=== PATIENT | female | born 1950 | race Caucasian/White ===

== ENCOUNTER → 2020-04-03 | Outpatient (CLI) | payer MEDICARE, OTHER ==
[~2020-04-03] MED LIST: ASPI-266 PO; DICL75TA2 PO; ENAL1TAB PO; METF-380 PO; MISO200T4 PO
--- NOTE | 2020-04-03 08:25 | Diagnostic Imaging Report ---
INDICATION: Right hip pain. AP and oblique views of the right hip are obtained. No acute fracture or acute bone abnormality is seen. There is advanced degenerative change of the right hip joint with severe joint space narrowing and subchondral sclerosis with subchondral geode formation on both sides of the joint space. IMPRESSION: Advanced osteoarthritic changes of the right hip with no acute abnormality. Dictated by: Dictated on workstation # [id number]
--- NOTE | 2020-04-03 08:31 | Diagnostic Imaging Report ---
Indication: Back pain. AP and lateral views of the lumbar spine are obtained. The lumbar vertebrae are normal in height. There is no compression deformity. There is diffuse degenerative changes osteophyte formation throughout the lumbar region. There is disc space narrowing most prominent at L4-L5 with degenerative endplate changes. There are diffuse facet degenerative changes from L3 through S1. Aortic calcifications are noted. There is calcification of the left upper quadrant which is unchanged compared to the prior study. Impression: Degenerative findings throughout the lumbar spine, most prominent at L4-L5. The disc space narrowing is progressed compared to 05/10/2016 at L4-L5. There is no acute appearing abnormality. Dictated by: Dictated on workstation # [id number]
== END ==
LOC: RAD 07:37
PROVIDERS: ATTEND Family Medicine
DX: M16.11 Unilateral primary osteoarthritis, right hip (principal); M47.816 Spondylosis without myelopathy or radiculopathy, lumbar region; M51.36 Other intervertebral disc degeneration, lumbar region; M48.061 Spinal stenosis, lumbar region without neurogenic claudication
CPT/HCPCS: 72100; 73502

== ENCOUNTER → 2020-09-23 | Outpatient (CLI) | payer MEDICARE, OTHER ==
[~2020-09-23] VITALS: Ht 167 cm; Wt 112.0 kg
[~2020-09-23] MED LIST changes: +CATHETER FLUSH 10 ML SYR IV PRN; +REGADENOSON 0.4 MG/5 ML SYR (LEXISCAN) IV ONE
[2020-09-23 09:07] VITALS: BP 183/97
--- NOTE | 2020-09-23 15:56 | Cardiology Stress Test Report ---
Stress Test Report Date of Procedure/Referring: Date of Procedure: Sep 23, 2020 PCP Demetrio Mckeon MD Admitting Physician Anayeli Alanis MD Indications: Hypertension Baseline Heart Rate: 90 Baseline Blood Pressure: Blood Pressure Systolic: 183 Blood Pressure Diastolic: 97 Baseline Vitals Vital Signs Date Time Temp Pulse Resp B/P (MAP) Pulse Ox O2 Delivery O2 Flow Rate FiO2 09/23/20 09:07 89 18 183/97 (125) 98 Room Air Baseline EKG: Baseline EKG: normal sinus rhythm Summary After explaining the procedure to the patient, she signed a consent and then brought to the stress nuclear laboratory. Patient received 0.4 mg Lexiscan for stress test, ECG, heart rate and blood pressure were monitored continuously. Resting and stress dose of radio tracer were injected, imaging was acquired and reviewed in short axis, horizontal long axis and vertical long axis views. TID: 1.08 SSS: 5 SDS: 3 EF: 54 1. Patient tolerated Lexiscan well 2. Decreased uptake involving the inferior wall and inferoapex, extracardiac attenuation affecting the quality of the images with mild reversibility involving the mid to apical inferior wall neck sign 3. Normal left ventricular size, EF 54 percent DEMETRIO MCKEON MD Sep 23, 2020 15:56
== END ==
LOC: CARD 07:45
PROVIDERS: ATTEND Internal Medicine Cardiovascular Disease
DX: I13.10 Hypertensive heart and chronic kidney disease without heart failure, with stage 1 through stage 4 chronic kidney disease, or unspecified chronic kidney disease (principal); N18.30 Chronic kidney disease, stage 3 unspecified; E11.22 Type 2 diabetes mellitus with diabetic chronic kidney disease; E78.2 Mixed hyperlipidemia
CPT/HCPCS: 78452; 93017; 93306; A9502

== ENCOUNTER 2020-10-07 08:00 | Day surgery (SDC) | payer MEDICARE, OTHER ==
[~2020-10-07] VITALS: Ht 168 cm; Wt 112.5 kg
[2020-10-07] VITALS (22 sets, daily range): BP systolic 149–214; BP diastolic 72–120
[2020-10-07 07:42] LABS: HEMOGLOBIN 14.6 g/dL (11.5-16.0); MEAN PLATELET VOLUME 10.8 fL (9.0-12.2)
[2020-10-07 07:54] LABS: INR 0.9 (0.8-1.4); PROTHROMBIN TIME PATIENT 12.8 SEC (12.2-14.7)
[~2020-10-07 08:00] MED LIST changes: -CATHETER FLUSH 10 ML SYR IV PRN; +HEParin (CATH LAB) 2,000 ML IV ONE; +HEParin 1000 UNIT/ML (10ML VIAL) FOR BOLUS ONE; +LIDOCAINE 1% INJ 20 ML 20 ML VIAL ONE; +MIDAZOLAM 5 MG/5 ML (VERSED) VIAL ONE; +NITRO DRIP 25000 MCG/D5W 250 ML IV ONE; +NS IV 1000 ML 1,000 ML IV SCH; +NS IV 1000 ML 1,000 ML ONE; -REGADENOSON 0.4 MG/5 ML SYR (LEXISCAN) IV ONE; +VERAPAMIL 5 MG/2 ML (CALAN) VIAL IV ONE; +fentaNYL INJECTION 100 MCG/2 ML AMP ONE
[2020-10-07 08:03] LABS: ALBUMIN 4.1 GM/DL (3.2-4.5); BILIRUBIN,TOTAL 0.4 MG/DL (0.1-1.0); CALCIUM 9.4 MG/DL (8.5-10.1); CREATININE SERUM 1.17 MG/DL (0.60-1.30); POTASSIUM 4.1 MMOL/L (3.6-5.0); TOTAL PROTEIN 7.3 GM/DL (6.4-8.2)
[2020-10-07] MEDS ORDERED: ASPI-1238 PO (08:06)
[2020-10-07] MEDS ORDERED: AMLO2.5T4 PO (08:06)
[2020-10-07] MEDS ORDERED: MTP25TSR PO (08:06)
[2020-10-07] MEDS ORDERED: DOCU100T7 PO (08:06)
[2020-10-07] MEDS ORDERED: DICL75TA2 PO (08:06)
[2020-10-07] MEDS ORDERED: INSU100I29 SQ (08:06)
[2020-10-07] MEDS ORDERED: ENAL10TA16 PO (08:06)
[2020-10-07] MEDS ORDERED: MISO200T62 PO (08:06)
[2020-10-07] MEDS ORDERED: LIRA0.6P3 SQ (08:06)
--- NOTE | 2020-10-07 08:06 | Diagnostic Imaging Report ---
Indication: Abnormal stress test. Dyspnea. Hypertension Upright chest shows normal heart size and vascularity. The lungs are clear. There is no effusion or pneumothorax. There is no bony abnormality. IMPRESSION: Normal chest. Dictated by: Dictated on workstation # [id number]
--- NOTE | 2020-10-07 08:41 | Cardiac Procedure Note-CS/ASA ---
Pre-Procedure Note Pre-Op Procedure Note H&P Reviewed The H&P was reviewed, patient examined and no changes noted. Date H&P Reviewed: Oct 07, 2020 Time H&P Reviewed: 08:40 Conscious Sedation Pre-Proced Time 08:40 ASA Score 3 For ASA 3 and 4: Consider anesthesia and medical clearance. Also, for patients with a history of failed moderate sedation consider anesthesia. Airway Lungs Heart ASA score ASA 1: a normal healthy patient ASA 2: a patient with a mild systemic disease (mid diabetes, controlled hypertension, obesity x ASA 3: a patient with a severe systemic disease that limits activity (angina, COPD, prior Myocardial infarction) ASA 4: a patient with an incapacitating disease that is a constant threat to life (CHF, renal failure) ASA 5: a moribund patient not expected to survive 24 hrs. (ruptured aneurysm) ASA 6: a declared brain- patient whose organs are being harvested. For emergent operations, add the letter E after the classification Mallampati Classification Grade 3 Sedation Plan Analgesia, Amnesia, Plan communicated to team members, Discussed options with patient/fam, Discussed risks with patient/fam The patient is an appropriate candidate to undergo the planned procedure, sedation, and anesthesia. The patient immediately re-assessed prior to indication. DEMETRIO MENDEZ MD Oct 07, 2020 08:41
--- NOTE | 2020-10-07 09:04 | NUR ---
SPOKE WITH THE PT AND CALLED [facility] TO COMPLETE THE MED REC THE FOLLOWING ARE FILL DATES FROM [facility]: 07-11-2020 VICTOZA #3 PENS/30DS- THE PAST DUE FILL IS DOCUMENTED ON THE MED REC 07-27-2020 METOPROLOL SUCC 25MG #90/90DS 07-27-2020 DICLOFENAC 75MG #90/90DS 08-05-2020 AMLODIPINE 2.5MG #90/90DS 08-05-2020 LEVEMIR FLEXPEN #5PENS/42DS 09-14-2020 MISOPROSTOL 200MG #99 OTC MEDS: ASPIRIN 81 STOOL SOFTENER
[2020-10-07] MEDS ORDERED: TICAGRELOR 90 MG TABLET (BRILINTA) PO ONE (09:56)
[2020-10-07] MEDS ORDERED: ASPIRIN 325 MG (5 GR) TABLET ONE (09:56)
[2020-10-07] MEDS ORDERED: NON-FORMULARY MEDICATION 1 EA EA (Docusate Sodium (Stool Softener) 100 MG) PO PRN (10:15)
[2020-10-07] MEDS ORDERED: PATIENT MAY USE OWN MEDS, ALL PO SCH (10:15)
--- NOTE | 2020-10-07 10:20 | Cardiac Cath Report ---
Cardiac Cath Report Physician (s)/Director Of Personnel (s) Physician DEMETRIO MENDEZ MD Pre-Procedure Diagnosis Pre-Procedure Diagnosis: coronary artery disease Post-Procedure Note Procedure Start Date: Oct 07, 2020 Name of Procedure: Left heart catheterization Stent to the LAD Findings/Procedure Note PROCEDURE NOTE: 69-year-old lady with history of hypertension, hyperlipidemia, had abnormal stress test, scheduled for angiogram possible angioplasty. After explaining the procedure to the patient, all pros and cons were explained, all questions were answered. The patient signed the consent and then she was placed on the cardiac catheterization laboratory. Groin was prepped SL fashion local anesthesia was used. Sheath placed in the right radial artery, [place] catheter advanced to the left ventricular cavity, pressure was measured for back LV to aorta was done then intubated the left coronary system with difficulties. Angiogram was done, I could not reach the right coronary artery. The sheath was removed and vascular band was used and I placed 6 [place] sheath in the right femoral artery. Sis right catheter advanced to the right coronary system then patient was noted to have severe stenosis at multiple segments in the LAD with slow flow. Total of 7000 units of heparin were given, EBU guide was advanced then I was unable to advance the BMW wire through the LAD due to tortuosity and heavy stenosis and severe stenosis, I placed it in the diagonal artery and advanced whisper extra support wire and placed it distally predilated the area with 2.5 x 20 mm balloon then I placed 3 overlapping stent using Sariah stent distally 2.5 x 23 and expanded to 2.7 mm overlapping with mid stent 3.0 x 23 mm expanded to 3.25 and in the proximal LAD there is a 3.5 x 18 stent deployed overlapping with the mid stent expanded to 3.65 mm with excellent results At the end of the procedure the sheath was removed. Closure device was deployed FINDINGS: Hemodynamics LV 137/14, end-diastolic pressure 14 Aorta 131/73 mean of 72 ANATOMY: Left Main is bifurcating into LAD and circumflex artery with no obstructive disease Left Anterior Descending is heavily calcified artery with multiple segment of severe stenosis, complex intervention with deployment of 3 overlapping stent using Sariah stent starting distally with 2.5 x 23 expanded to 2.7 mm, mid 3.0 x 23 expanded to 3.25 and proximally 3.5 x 18 expanded to 3.65 with excellent results Left Circumflex is large dominant artery with mild disease nonobstructive disease Right Coronory Artery is small nondominant artery with no obstructive disease LV Gram was not done, pressure was measured CONCLUSION: 1. Severe long segment stenosis in the LAD with heavy calcification, complex intervention with deployment of 3 overlapping drug-eluting stents using Sariah starting distally with 2.523 mm expanded to 2.7 mm, mid 3.0 x 23 mm expanded to 3.25 mm and proximally 3.5 x 18 mm expanded to 3.65 mm with excellent results and excellent blood flow postintervention 2. Large dominant circumflex artery with mild disease at the distal portion nonobstructive disease 3. Small nondominant right coronary artery 4. Normal left ventricular end-diastolic pressure DISCUSSION AND RECOMMENDATION: Patient had poor flow in the LAD prior to the intervention, heavily calcified LAD requiring 3 overlapping stent she will be treated with aspirin and Brilinta and will require dual antiplatelet therapy for one year, I recommend postponing her hip surgery for one year, continue to maximize medical therapy at [facility] to her medication Anesthesia Type: Conscious Sedation Estimated blood loss (mL): 50 ml Contrast Amount: 180 ml Total Radiation Dose: 2408 mGy Post-Procedure Diagnosis Post-operative diagnosis: Chest pain Coronary artery disease Hypertension Hyperlipidemia DEMETRIO MENDEZ MD Oct 07, 2020 10:20
[2020-10-07] MEDS: NS IV 1000 ML 1,000 ML IV SCH (11:09)
--- NOTE | 2020-10-07 12:30 | NUR ---
RIGHT WRIST PRESSURE DEVICE REMOVED AND STERILE DRESSING APPLIED. NO BLEEDING NOTED. GROIN DRESSING REMAINS UNCHANGED WITH SCANT BLOOD NOTED ON THE LOWER ASPECT OF THE DRESSING. HOB ELEVATED 30 DEGREES AND A SANDWICH WAS GIVEN TO THE PATIENT.
--- NOTE | 2020-10-07 12:45 | NUR ---
PATIENT VOIDED PER BEDPAN WITHOUT INCIDENT.
--- NOTE | 2020-10-07 12:50 | NUR ---
REPORT TO Jamia CARBAJAL RN. PATIENT TO ICU PER BED WITH MONITOR.
[2020-10-07] MEDS ORDERED: DOCUSATE SODIUM 100 MG (COLACE) CAP PO PRN (15:15)
[2020-10-07] MEDS ORDERED: amLODIPine 2.5MG (NORVASC) TAB PO SCH (21:00)
[2020-10-07] MEDS ORDERED: INSULIN DETEMIR 35 UNIT SQ SCH (21:00)
[2020-10-07] MEDS: TICAGRELOR 90 MG TABLET (BRILINTA) PO SCH (21:13)
[2020-10-08] VITALS: BP 121/97
[2020-10-08 03:32] LABS: HEMOGLOBIN 13.8 g/dL (11.5-16.0); MEAN PLATELET VOLUME 11.1 fL (9.0-12.2); WHITE BLOOD COUNT 9.9 10^3/uL (4.3-11.0)
[2020-10-08 03:45] LABS: ALBUMIN 3.8 GM/DL (3.2-4.5); POTASSIUM 3.9 MMOL/L (3.6-5.0)
[2020-10-08 03:47] LABS: CALCIUM 9.3 MG/DL (8.5-10.1)
[2020-10-08 03:48] LABS: TOTAL PROTEIN 6.8 GM/DL (6.4-8.2)
[2020-10-08 03:50] LABS: BILIRUBIN,TOTAL 0.4 MG/DL (0.1-1.0)
[2020-10-08 03:51] LABS: CREATININE SERUM 1.22 MG/DL (0.60-1.30)
[2020-10-08 04:00] VITALS: BP 129/80
[2020-10-08] MEDS: NS IV 1000 ML 1,000 ML IV SCH ×2 (04:13→06:24)
[2020-10-08 08:00] VITALS: BP 142/112
[2020-10-08] MEDS ORDERED: ENALAPRIL 10 MG (VASOTEC) TAB PO SCH (09:00)
[2020-10-08] MEDS ORDERED: MISOPROSTOL 200 MCG (CYTOTEC) TABLET PO SCH (09:00)
[2020-10-08] MEDS ORDERED: VICTOZA SQ SCH (09:00)
[2020-10-08] MEDS ORDERED: NON-FORMULARY MEDICATION 1 EA EA (Liraglutide (Victoza 3-Pak) 1.8 MG) SQ SCH (09:00)
[2020-10-08] MEDS ORDERED: ASPIRIN E.C. 81 MG (ECOTRIN) TAB PO SCH (09:00)
[2020-10-08] MEDS ORDERED: ATOR10TA66 PO (09:01)
[2020-10-08] MEDS ORDERED: TICA90TA PO (09:01)
--- NOTE | 2020-10-08 09:02 | Cardiology Progress Note ---
Subjective Date Seen by Provider: Oct 08, 2020 Time Seen by Provider: 09:39 Subjective/Events-last exam Coronary artery disease, status post cardiac catheterization with stenting, site is healing well. No new complaint, no chest pain Review of Systems General: No Chills, No Night Sweats, No Fatigue, No Malaise, No Appetite, No Other HEENT: No Head Aches, No Visual Changes, No Eye Pain, No Ear Pain, No Dysphasia, No Sinus Congestion, No Post Nasal Drip, No Sore Throat, No Other Pulmonary: No Dyspnea, No Cough, No Pleuritic Chest Pain, No Other Cardiovascular: No: Chest Pain, Palpitations, Orthopnea, Paroxysmal Noc. D yspnea, Edema, Lt Headedness, Other Objective-Cardiology Exam Last Set of Vital Signs Vital Signs 10/07/20 10/08/20 16:03 08:00 Temp 36.2 Pulse 82 Resp 22 B/P (MAP) 142/112 (122) Pulse Ox 94 O2 Delivery Room Air O2 Flow Rate 4.00 Capillary Refill : Less Than 3 Seconds I&O Intake and Output 10/08/20 00:00 Intake Total 300 ml Output Total 400 ml Balance -100 ml Intake Oral 300 ml Output Urine Total 400 ml Daily Weight Change No No General: Alert, Oriented X3, Cooperative HEENT: Atraumatic, PERRLA Neck: Supple, No JVD, No Thyromegaly Lungs: Clear to Auscultation, Normal Air Movement Heart: Regular Rate, Normal S1, Normal S2, No Murmurs Abdomen: Normal Bowel Sounds, Soft, No Tenderness, No Hepatosplenomegaly, No Masses Extremities: No Clubbing, No Cyanosis, No Edema, Normal Pulses, No Tenderness/Swelling Skin: No Rashes, No Breakdown, No Significant Lesion Neuro: Normal Gait, Normal Speech, Strength at 5/5 X4 Ext, Normal Tone, Sensation Intact Psych/Mental Status: Mental Status NL, Mood NL Results Lab Laboratory Tests 10/08/20 03:17 A/P-Cardiology Admission Diagnosis Coronary artery disease Hypertension Hyperlipidemia Diabetes mellitus Assessment/Plan Coronary artery disease, status post stenting, educated in length about compliance with the new medication with aspirin and Brilinta 1. Severe long segment stenosis in the LAD with heavy calcification, complex intervention with deployment of 3 overlapping drug-eluting stents using Sariah starting distally with 2.523 mm expanded to 2.7 mm, mid 3.0 x 23 mm expanded to 3.25 mm and proximally 3.5 x 18 mm expanded to 3.65 mm with excellent results and excellent blood flow postintervention 2. Large dominant circumflex artery with mild disease at the distal portion nonobstructive disease 3. Small nondominant right coronary artery 4. Normal left ventricular end-diastolic pressure Hypertension, monitor blood pressure next Hyperlipidemia, monitor lipids next Diabetes mellitus Clinical Quality Measures DVT/VTE Risk/Contraindication: Risk Factor Score Per Nursin RFS Level Per Nursing on Admit: 2=Moderate DEMETRIO MENDEZ MD Oct 08, 2020 9:02 am
--- NOTE | 2020-10-08 09:02 | Discharge Inst-Post CATH ---
Discharge Inst-CATH/EP Problems Reviewed?: Yes Post Cardiac Cath/EP D/C Inst Follow Up/Plan Appointment with Dr. MENDEZ's office in 2 weeks <b>CARDIAC CATH/EP PROCEDURE DISCHARGE INSTRUCTIONS</b> ACTIVITY * Go Home directly and rest. * Limit activity of the leg (or wrist if it was used) for 7 days including aerobics, swimming, jogging, bicycling, etc. * Restrict stair-climbing for 7 days if possible, if not, climb up with your non-cath leg, then bring together on the same step. * Avoid lifting, pushing, pulling or excessive movement of the affected extremity for 7 days. * Customary sexual activity may be resumed after 2 days-use caution not to use a position that strains or causes pain to the affected extremity. * No driving for 24 hours. * NO SMOKING. * Avoid straining for bowel movements for 7 days. * Gentle walking on level ground is allowed. * Returning to work will depend on the type of procedure and the results. Your doctor will discuss this with you. CALL YOUR DOCTOR FOR ANY OF THE FOLLOWING: *If bleeding from the puncture site occurs- Apply gentle pressure to site with clean cloth and call your doctor or EMS. * If a knot or lump forms under the skin, increases in size, or causes pain. * If bruising appears to be worsening or moving further down your leg instead of disappearing. * Temperature above 101 F. CARE OF YOUR GROIN INCISION; * Bruising or purple discoloration of the skin near the puncture site is common. * You may shower only, no bathtub bathing for 5 days. Be careful to avoid slipping as your leg may feel stiff. * If a closure device was used on your femoral artery, please see the attached guide regarding care of the device and your leg. * Leave dressing on FOR 24 hours. CARE OF YOUR WRIST INCISION; * Bruising or purple discoloration of the skin near the puncture site is common. * You may shower. * DO NOT submerge wrist. * Leave dressing on FOR 24 hours. DEMETRIO MENDEZ MD Oct 08, 2020 09:02
[2020-10-08] MEDS: TICAGRELOR 90 MG TABLET (BRILINTA) PO SCH (09:22)
== END 2020-10-08 11:21 | disposition home or self-care (01) ==
LOC: CATH 08:00 → SDC 10:28 → CSD 13:15 → CATH 10-08 11:21
PROVIDERS: ATTEND Internal Medicine Cardiovascular Disease
DX: I25.10 Atherosclerotic heart disease of native coronary artery without angina pectoris (principal); I10 Essential (primary) hypertension; E78.5 Hyperlipidemia, unspecified; G47.33 Obstructive sleep apnea (adult) (pediatric); E78.2 Mixed hyperlipidemia; R09.89 Other specified symptoms and signs involving the circulatory and respiratory systems; M16.10 Unilateral primary osteoarthritis, unspecified hip; R94.39 Abnormal result of other cardiovascular function study; Z79.899 Other long term (current) drug therapy; Z88.8 Allergy status to other drugs, medicaments and biological substances; Z83.3 Family history of diabetes mellitus
CPT/HCPCS: 71045; 80053 ×2; 80061; 82962; 85027 ×2; 85610; 85730; 87081; 93458; C1725; C1760; C1769 ×2; C1874 ×3; C1887; C1894 ×2; C9600; 36415

== ENCOUNTER → 2021-03-31 | Outpatient (CLI) | payer MEDICARE, OTHER ==
[~2021-03-31] MED LIST changes: +AMLO2.5T4 PO; +ASPI-1238 PO; +ATOR10TA66 PO; +DOCU100T7 PO; +ENAL10TA16 PO; -HEParin (CATH LAB) 2,000 ML IV ONE; -HEParin 1000 UNIT/ML (10ML VIAL) FOR BOLUS ONE; +INSU100I29 SQ; -LIDOCAINE 1% INJ 20 ML 20 ML VIAL ONE; +LIRA0.6P3 SQ; -MIDAZOLAM 5 MG/5 ML (VERSED) VIAL ONE; +MISO200T66 PO; +MTP25TSR PO; -NITRO DRIP 25000 MCG/D5W 250 ML IV ONE; -NS IV 1000 ML 1,000 ML IV SCH; -NS IV 1000 ML 1,000 ML ONE; +TICA90TA PO; -VERAPAMIL 5 MG/2 ML (CALAN) VIAL IV ONE; -fentaNYL INJECTION 100 MCG/2 ML AMP ONE
--- NOTE | 2021-03-31 10:20 | Diagnostic Imaging Report ---
INDICATION: Left flank pain KUB 9:44 AM Lung bases are clear. Bowel gas pattern is normal. There are no masses seen. There is a round calcification in the left midabdomen previously demonstrated to be calcified lymph node. There are degenerative disc changes lower lumbar spine and of the right hip. IMPRESSION: No acute abnormalities in the abdomen Dictated by: Dictated on workstation # [id number]
== END ==
LOC: RAD 09:14
PROVIDERS: ATTEND Nurse Practitioner Family
DX: R10.9 Unspecified abdominal pain (principal)
CPT/HCPCS: 74018

== ENCOUNTER → 2022-02-16 | Outpatient (CLI) | payer MEDICARE, OTHER ==
[~2022-02-16] VITALS: Ht 170 cm; Wt 120.0 kg
[~2022-02-16] MED LIST changes: +ASPIRIN E.C. 81 MG (ECOTRIN) TAB PO SCH; +CATHETER FLUSH 10 ML SYR IVP PRN; +CLOPIDOGREL 75 MG (PLAVIX) TABLET PO SCH; +NS IV 1000 ML 1,000 ML IV SCH; +REGADENOSON 0.4 MG/5 ML SYR (LEXISCAN) IV ONE
[2022-02-16 13:02] VITALS: BP 149/93
--- NOTE | 2022-02-16 15:23 | Cardiology Stress Test Report ---
Stress Test Report Date of Procedure/Referring: Date of Procedure: Feb 16, 2022 PCP Demetrio Mckeon MD Admitting Physician Anayeli Alanis MD Indications: HTN Baseline Heart Rate: 88 Baseline Blood Pressure: Blood Pressure Systolic: 149 Blood Pressure Diastolic: 93 Baseline Vitals Vital Signs Date Time Temp Pulse Resp B/P (MAP) Pulse Ox O2 Delivery O2 Flow Rate FiO2 02/16/22 13:02 88 149/93 (111) 98 Baseline EKG: Baseline EKG: NSR Summary After explaining the procedure to the patient, she signed a consent and then brought to the stress nuclear laboratory. Patient received 0.4 mg Lexiscan for stress test, ECG, heart rate and blood pressure were monitored continuously. Resting and stress dose of radio tracer were injected, imaging was acquired and reviewed in short axis, horizontal long axis and vertical long axis views. TID: 1.02 SSS: 15 SDS: 3 EF: 50 1. Patient tolerated Lexiscan well 2. Diaphragmatic attenuation with decreased uptake involving the whole inferior wall and inferior apical segment and true apex with mild reversibility at the inferior apex and true apex. 3. Normal left ventricular size, EF 50% DEMETRIO MCKEON MD Feb 16, 2022 15:23
== END ==
LOC: CARD 10:30
PROVIDERS: ATTEND Internal Medicine Cardiovascular Disease
DX: I10 Essential (primary) hypertension (principal); I25.10 Atherosclerotic heart disease of native coronary artery without angina pectoris
CPT/HCPCS: 78452; 93017; 93306; A9502

== ENCOUNTER 2022-03-02 09:00 | Day surgery (SDC) | payer MEDICARE, OTHER ==
[2022-03-02] VITALS (7 sets, daily range): BP systolic 114–152; BP diastolic 78–93
[~2022-03-02] VITALS: Ht 168.9 cm; Wt 121.8 kg
--- NOTE | 2022-03-02 08:06 | Diagnostic Imaging Report ---
INDICATION: Heart catheterization, coronary artery disease COMPARISON: 10/07/2020 TECHNIQUE: Single radiograph chest dated 03/02/2022. FINDINGS: The cardiac silhouette is within normal limits in size and stable. No significant pulmonary vascular congestion. The lungs are clear of focal pulmonary opacity. No pleural effusion. No pneumothorax. No acute osseous abnormality. IMPRESSION: Stable appearing examination without acute cardiopulmonary abnormality. Dictated by: Dictated on workstation # [id number]
[2022-03-02 08:07] LABS: HEMATOCRIT 42 % (35-52); HEMOGLOBIN 13.6 g/dL (11.5-16.0); MEAN CORPUSCULAR HEMOGLOBIN 29 pg (25-34); MEAN CORPUSCULAR HGB CONC 32 g/dL (32-36); MEAN CORPUSCULAR VOLUME 90 fL (80-99); MEAN PLATELET VOLUME 11.2 fL (9.0-12.2); PLATELET COUNT 225 10^3/uL (130-400); WHITE BLOOD COUNT 9.3 10^3/uL (4.3-11.0)
[2022-03-02 08:08] LABS: BILIRUBIN,URINE NEGATIVE (NEGATIVE); CLARITY,URINE CLEAR; COLOR,URINE YELLOW; GLUCOSE, URINE (UA) NEGATIVE (NEGATIVE); KETONES,URINE NEGATIVE (NEGATIVE); LEUKOCYTE ESTERASE ,URINE 2+ (NEGATIVE); NITRITE,URINE NEGATIVE (NEGATIVE); PH,URINE 6.5 (5-9); PROTEIN,URINE 2+ (NEGATIVE)
[2022-03-02 08:22] LABS: BILIRUBIN,TOTAL 0.3 MG/DL (0.1-1.0); CALCIUM 9.8 MG/DL (8.5-10.1); CREATININE SERUM 1.35 MG/DL (0.60-1.30); POTASSIUM 4.2 MMOL/L (3.6-5.0); TOTAL PROTEIN 7.2 GM/DL (6.4-8.2)
[2022-03-02 08:31] LABS: INR 0.9 (0.8-1.4); PROTHROMBIN TIME PATIENT 12.9 SEC (12.2-14.7)
[2022-03-02 08:38] LABS: BACTERIA,URINE FEW /HPF
[~2022-03-02 09:00] MED LIST changes: +AMLO-250 PO; -ASPIRIN E.C. 81 MG (ECOTRIN) TAB PO SCH; +CALC-250 PO; -CATHETER FLUSH 10 ML SYR IVP PRN; +CLOP75TA28 PO; -CLOPIDOGREL 75 MG (PLAVIX) TABLET PO SCH; +ERGO2000 PO; +HEParin (CATH LAB) 2,000 ML IV ONE; +LIDOCAINE 1% INJ 50 ML (XYLOCAINE) VIAL ONE; +METO75TA PO; +NS IV 1000 ML 1,000 ML ONE; -REGADENOSON 0.4 MG/5 ML SYR (LEXISCAN) IV ONE
--- NOTE | 2022-03-02 09:19 | Conscious Sedation/ASA ---
Conscious Sedation Pre-Proced Time 09:18 ASA Score 3 For ASA 3 and 4: Consider anesthesia and medical clearance. Also, for patients with a history of failed moderate sedation consider anesthesia. Airway Lungs Heart ASA score ASA 1: a normal healthy patient ASA 2: a patient with a mild systemic disease (mid diabetes, controlled hypertension, obesity x ASA 3: a patient with a severe systemic disease that limits activity (angina, COPD, prior Myocardial infarction) ASA 4: a patient with an incapacitating disease that is a constant threat to life (CHF, renal failure) ASA 5: a moribund patient not expected to survive 24 hrs. (ruptured aneurysm) ASA 6: a declared brain- patient whose organs are being harvested. For emergent operations, add the letter E after the classification Mallampati Classification Grade 3 Sedation Plan Analgesia, Amnesia, Plan communicated to team members, Discussed options with patient/fam, Discussed risks with patient/fam The patient is an appropriate candidate to undergo the planned procedure, sedation, and anesthesia. The patient immediately re-assessed prior to indication. DEMETRIO MENDEZ MD Mar 02, 2022 09:18
[2022-03-02] MEDS ORDERED: MIDAZOLAM 5 MG/5 ML (VERSED) VIAL ONE (09:24)
[2022-03-02] MEDS ORDERED: fentaNYL INJ 100 MCG/2 ML AMP ONE (09:24)
[2022-03-02] MEDS ORDERED: HEParin 1000 UNIT/ML (10ML VIAL) FOR BOLUS ONE (09:24)
[2022-03-02] MEDS ORDERED: VERAPAMIL 5 MG/2 ML (CALAN) VIAL IV ONE (09:24)
[2022-03-02] MEDS ORDERED: NITRO DRIP 25000 MCG/D5W 250 ML IV ONE (09:26)
--- NOTE | 2022-03-02 10:12 | Discharge Inst-Post CATH ---
Discharge Inst-CATH/EP Problems Reviewed?: Yes Post Cardiac Cath/EP D/C Inst Follow Up/Plan Appointment with Dr. Mckeon's office in 2 to 4 weeks <b>CARDIAC CATH/EP PROCEDURE DISCHARGE INSTRUCTIONS</b> ACTIVITY * Go Home directly and rest. * Limit activity of the leg (or wrist if it was used) for 7 days including aer obics, swimming, jogging, bicycling, etc. * Restrict stair-climbing for 7 days if possible, if not, climb up with your non-cath leg, then bring together on the same step. * Avoid lifting, pushing, pulling or excessive movement of the affected extremi ty for 7 days. * Customary sexual activity may be resumed after 2 days-use caution not to use a position that strains or causes pain to the affected extremity. * No driving for 24 hours. * NO SMOKING. * Avoid straining for bowel movements for 7 days. * Gentle walking on level ground is allowed. * Returning to work will depend on the type of procedure and the results. Your doctor will discuss this with you. CALL YOUR DOCTOR FOR ANY OF THE FOLLOWING: *If bleeding from the puncture site occurs- Apply gentle pressure to site with clean cloth and call your doctor or EMS. * If a knot or lump forms under the skin, increases in size, or causes pain. * If bruising appears to be worsening or moving further down your leg instead of disappearing. * Temperature above 101 F. CARE OF YOUR GROIN INCISION; * Bruising or purple discoloration of the skin near the puncture site is common. * You may shower only, no bathtub bathing for 5 days. Be careful to avoid slipping as your leg may feel stiff. * If a closure device was used on your femoral artery, please see the attached guide regarding care of the device and your leg. * Leave dressing on FOR 24 hours. CARE OF YOUR WRIST INCISION; * Bruising or purple discoloration of the skin near the puncture site is common. * You may shower. * DO NOT submerge wrist. * Leave dressing on FOR 24 hours. DEMETRIO MCKEON MD Mar 02, 2022 10:12
[2022-03-02] MEDS ORDERED: NS IV 1000 ML 1,000 ML IV SCH (10:15)
--- NOTE | 2022-03-02 10:15 | Cardiac Cath Report ---
Cardiac Cath Report Physician (s)/Scroll Saw Operator (s) Physician DEMETRIO MENDEZ MD Pre-Procedure Diagnosis Pre-Procedure Diagnosis: coronary artery disease Post-Procedure Note Procedure Start Date: Mar 02, 2022 Name of Procedure: Left heart catheterization Findings/Procedure Note PROCEDURE NOTE: 71-year-old lady with a history of coronary artery disease, hypertension hyperlipidemia, had an abnormal stress test. Scheduled for cardiac catheterization possible PTCA. After explaining the procedure to the patient, all pros and cons were explained, all questions were answered. The patient signed the consent and then she was placed on the cardiac catheterization laboratory. Groin was prepped SL fashion local anesthesia was used. Sheath placed in the right radial artery, [place] catheter was advanced to the left ventricular cavity, pressure was measured, pullback LV to aorta was done, engage the right and left coronary system, multiple views were obtained. At the end of the procedure the sheath was removed. Vascular band was used FINDINGS: Hemodynamics LV 124/8, end-diastolic pressure of 8 Aorta 136/89 mean of 92 ANATOMY: Left Main is free of obstructive disease Left Anterior Descending has patent stents in the mid LAD, mild disease distally nonobstructive disease Left Circumflex is large dominant artery with mild disease nonobstructive disease Right Coronary Artery is nondominant artery, has moderate stenosis at the midportion nonobstructive disease LV Gram was not done, pressure was measured CONCLUSION: 1. Patent stents in the proximal and mid LAD with mild disease nonobstructive disease 2. Small nondominant right coronary artery with moderate stenosis at the midportion nonobstructive disease 3. Large dominant circumflex artery with mild disease nonobstructive disease 4. Normal left ventricular end-diastolic pressure DISCUSSION AND RECOMMENDATION: Medical therapy is recommended no intervention is warranted, abnormal stress test is probably due to small vessel disease Anesthesia Type: Conscious Sedation Estimated blood loss (mL): 10 ml Contrast Amount: 30 ml Total Radiation Dose: 582 mGy Post-Procedure Diagnosis Post-operative diagnosis: Coronary artery disease Chest pain Hypertension Hyperlipidemia DEMETRIO MENDEZ MD Mar 02, 2022 10:15
== END 2022-03-02 12:30 | disposition home or self-care (01) ==
LOC: CATH 09:00 → SDC 10:16 → CATH 12:30
PROVIDERS: ATTEND Internal Medicine Cardiovascular Disease
DX: I25.10 Atherosclerotic heart disease of native coronary artery without angina pectoris (principal); I10 Essential (primary) hypertension; E78.5 Hyperlipidemia, unspecified; E78.2 Mixed hyperlipidemia; G47.33 Obstructive sleep apnea (adult) (pediatric); I65.23 Occlusion and stenosis of bilateral carotid arteries; M19.90 Unspecified osteoarthritis, unspecified site; Z87.891 Personal history of nicotine dependence; Z95.5 Presence of coronary angioplasty implant and graft; Z79.82 Long term (current) use of aspirin
CPT/HCPCS: 71045; 80053; 80061; 81000; 85027; 85610; 85730; 87081; 87088; 93005; 93458; C1894; 36415